=== PATIENT | male | born 1970 | race Two or more races ===

== ENCOUNTER 2016-09-05 12:29 | Emergency (ER) | payer SELFPAY ==
--- NOTE | ~2016-09-05 | CR142 ---
[facility]. [facility] A Service of [facility] & [facility] RADIOLOGY TEXT RESULTS PATIENT: KELL SANCHEZ LOCATION: SED : 70 UNIT #: [id number] AGE: [address]: Sebastien Zamorano MD SEX: M ORDER DR: [id number] [address] [address] [id number] E MR#: [id number] Acc #: [id number] NAME: KELL SANCHEZ : 1970 SEX: M STUDY DATE/TIME: 09/05/2016 13:17 UNIT: SED ROOM: STUDY DESCRIPTION: CR Hand Min 3 Views Rt Attending Physician: Seabstien Zamorano M.D. Ordering Physician: Sebastien Zamorano M.D. MEDICAL IMAGING REPORT This report is preliminary unless electronic signature is present. EXAM Right hand HISTORY Snake bite to hand just prior to admission. Pain, swelling and discoloration. FINDINGS Three views of the right hand were obtained. There is no fracture or foreign body. There is marked soft tissue swelling in the hand. IMPRESSION Diffuse soft tissue swelling. No fracture or foreign body visible. Dictated by... Samson Weber M.D. THIS IS AN ELECTRONICALLY VERIFIED REPORT Samson Weber M.D. at 09/06/2016 7:03 AM FEL/pcl TD: 09/05/2016 22:00 JOB #: [id number] MEDICAL IMAGING REPORT Page 1 of 1
[2016-09-05] MEDS ORDERED: NO MEDICATIONS (12:44)
[2016-09-05 13:27] LABS: BASOPHIL# 0.1 X10e3 (0-0.3); BASOPHIL% 0.7 % (0-2.5); EOSINOPHIL# 0.5 X10e3 (0-0.7); EOSINOPHIL% 5.2 % (0.0-7.0); HEMATOCRIT 45.3 % (38.0-50.0); HEMOGLOBIN 15.8 gm/dL (13.0-16.0); LYMPHOCYTE% 32.3 % (17.0-45.0); MEAN CELL VOLUME 87.7 FL (83-96); MEAN CORPUSCULAR HEMOGLOBIN 30.6 PG (28-34); MEAN CORPUSCULAR HGB CONC 34.9 g/dL (30-36); MEAN PLATELET VOLUME 7.6 FL (6.5-11.5); MONOCYTE# 0.5 X10e3 (0-1.0); MONOCYTE% 5.3 % (3.0-12.0); NEUTROPHIL# 5.2 X10e3 (1.5-7.1); NEUTROPHIL% 56.5 % (40-75); PLATELET COUNT 211 X10e3 (140-420); RED BLOOD COUNT 5.16 X10e (3.90-5.60); RED CELL DISTRIBUTION WIDTH 13.4 % (11.0-15.5); WHITE BLOOD COUNT 9.2 X10e3 (4.0-10.5)
[2016-09-05 13:28] LABS: DIFF IND NO
[2016-09-05 13:41] LABS: PROTHROMBIN TIME (PATIENT) 11.4 SECONDS (9.5-12.4)
[2016-09-05 13:47] LABS: BUN/CREATININE RATIO 15.55; CALCIUM SERUM 8.8 mg/dL (8.4-10.2); CREATININE SERUM 0.9 mg/dL (0.6-1.4); GLOM FILT RATE Estimated 102.1 mL/min (>60); POTASSIUM 3.6 mmol/L (3.5-5.1)
[2016-09-05 13:48] LABS: PARTIAL THROMBOPLASTIN TIME 30.9 SECONDS (25.6-38.1)
== END 2016-09-05 14:49 | disposition hospice, home (50) ==
LOC: SED 12:29
PROVIDERS: Emergency Medicine
DX: T63.001A Toxic effect of unspecified snake venom, accidental (unintentional), initial encounter (principal); Z23 Encounter for immunization
CPT/HCPCS: 36415; 73130; 80048; 82550; 85025; 85610; 85730; 90471; 90715; 99285